=== PATIENT | male | born 1985 | race Asian ===

== ENCOUNTER 2017-12-04 16:19 | Emergency (ER) | payer MEDICAID ==
[~2017-12-04 16:19] MED LIST: ZOF4T PO
== END 2017-12-04 17:47 | disposition left against medical advice (07) ==
LOC: ER 16:19
DX: J00 Acute nasopharyngitis [common cold] (principal); Z53.21 Procedure and treatment not carried out due to patient leaving prior to being seen by health care provider

== ENCOUNTER 2021-09-24 13:24 | Inpatient (IN) | payer MEDICAID ==
[~2021-09-24] VITALS: Ht 162.6 cm; Wt 56.8 kg
[2021-09-24] MEDS ORDERED: normal saline 1000ML IV soln IVB ONE (13:40)
[2021-09-24 13:48] LABS: BASOPHILS % (AUTO) 0.1 % (0-1); EOSINOPHILS # (AUTO) 0.1 X10'3 (0-0.9); EOSINOPHILS % (AUTO) 1.4 % (0-6); HEMATOCRIT 28.6 % (42.0-52.0); HEMOGLOBIN 8.8 g/dl (14.0-17.9); LYMPHOCYTES % (AUTO) 9.2 % (21-51); MEAN CORPUSCULAR HEMOGLOBIN 22.5 PG (27.0-31.0); MEAN CORPUSCULAR HGB CONC 30.8 g/dL (33.0-36.5); MEAN PLATELET VOLUME 8.4 FL (7.4-10.4); MONOCYTES # (AUTO) 0.7 X10'3 (0-0.9); MONOCYTES % (AUTO) 6.5 % (2-12); NEUTROPHILS # (AUTO) 8.8 X10'3 (1.8-7.7); NEUTROPHILS % (AUTO) 82.8 % (42-75); PLATELET COUNT 80 X10'3 (140-440); RED BLOOD COUNT 3.92 X10'6 (4.70-6.10); WHITE BLOOD COUNT 10.6 X10'3 (4.5-11.0)
[2021-09-24] MEDS ORDERED: thiamine 100mg/ml 2ml inj. IV ONE (13:50)
[2021-09-24] MEDS ORDERED: folic acid 1mg/0.2ml inj IV ONE (13:50)
[2021-09-24] MEDS ORDERED: LORazepam 2 mg/ml vial IV ONE (13:50)
[2021-09-24] MEDS ORDERED: magnesium 2GM in 50ml NS 50 ML IV ONE (13:50)
[2021-09-24 13:59] LABS: ALANINE AMINOTRANSFERASE 34 U/L (12-78); ALBUMIN 2.8 G/DL (3.4-5.0); ALKALINE PHOSPHATASE 166 IU/L (46-116); ANION GAP 20 (8-16); ASPARTATE AMINO TRANSFERASE 115 U/L (10-37); BILIRUBIN,TOTAL 7.1 MG/DL (0.1-1.0); BLOOD UREA NITROGEN 6 MG/DL (7-18); BUN/CREATININE RATIO 5.6 (5.4-32.0); CALCIUM 7.8 MG/DL (8.5-10.1); CHLORIDE 89 MMOL/L (99-107); CREATININE 1.08 MG/DL (0.60-1.10); ETHANOL < 0.010 GM/DL (0.0-0.010); SODIUM 126 MMOL/L (135-145); TOTAL CARBON DIOXIDE 17.3 MMOL/L (24-32); eGFR 78 ML/MIN
[2021-09-24 14:00] LABS: ALBUMIN/GLOBULIN RATIO 0.4 (1.1-1.5); ANISOCYTOSIS 3+; GLUCOSE 137 MG/DL (70-104); LARGE PLATELETS FEW; MICROCYTOSIS 1+; PLATELET ESTIMATE DECREASED; POTASSIUM 3.5 MMOL/L (3.5-5.1); TOTAL PROTEIN 9.4 G/DL (6.4-8.2)
[2021-09-24] MEDS ORDERED: lactulose 20gm/30ml cup PO ONE (14:45)
[2021-09-24 14:51] LABS: URINE AMPHETAMINE SCREEN NEGATIVE (Neg); URINE BARBITUATE SCREEN NEGATIVE (Neg); URINE BENZODIAZEPINES SCREEN NEGATIVE (Neg); URINE CANNABINOID SCREEN POSITIVE (Neg); URINE COCAINE SCREEN NEGATIVE (Neg); URINE METHADONE SCREEN NEGATIVE (Neg); URINE OPIATE SCREEN NEGATIVE (Neg); URINE PHENCYCLIDINE SCREEN NEGATIVE (Neg)
[2021-09-24] MEDS ORDERED: NO HOME MEDS (15:12)
[2021-09-24] MEDS ORDERED: haloperidol lactate 5mg/ml inj IM PRN (16:15)
[2021-09-24] MEDS ORDERED: acetaminophen 325mg tablet PO PRN (16:15)
[2021-09-24] MEDS ORDERED: magnesium Cl slow-release 64mg tablet PO PRN (16:15)
[2021-09-24] MEDS ORDERED: LORazepam 2 mg/ml vial IV PRN (16:15)
[2021-09-24] MEDS ORDERED: ondansetron/PF 4mg/2ml inj IV PRN (16:15)
[2021-09-24] MEDS ORDERED: potassium CL 10mEq/100ml bag 100 ML IV PRN (16:15)
[2021-09-24] MEDS ORDERED: magnesium 4gm in 100ml NS 100 ML IV PRN (16:15)
[2021-09-24] MEDS ORDERED: mag hydrox/Alum hydrox/simeth 30ml oral suspension PO PRN (16:15)
[2021-09-24] MEDS ORDERED: magnesium 2GM in 50ml NS 50 ML IV PRN (16:15)
[2021-09-24] MEDS ORDERED: potassium Cl 20 mEq SR tablet PO PRN ×2 (16:15)
[2021-09-24] MEDS: normal saline 1000ml 1,000 ML IV SCH ×2 (16:29→23:00)
[2021-09-24] MEDS: lactulose 20gm/30ml cup PO SCH (19:53)
[2021-09-24] MEDS: K and/or MAG REPLACEMENT MC SCH (20:00)
[2021-09-24] MEDS: LORazepam 2 mg/ml vial IV PRN (20:57)
[2021-09-25 00:16] VITALS: BP 113/66
[2021-09-25] MEDS: lactulose 20gm/30ml cup PO SCH ×2 (01:50→07:35)
[2021-09-25] MEDS: normal saline 1000ml 1,000 ML IV SCH ×2 (05:36→22:15)
[2021-09-25 06:22] LABS: BASOPHILS % (AUTO) 0.3 % (0-1); EOSINOPHILS # (AUTO) 0.4 X10'3 (0-0.9); EOSINOPHILS % (AUTO) 5.1 % (0-6); HEMATOCRIT 23.9 % (42.0-52.0); HEMOGLOBIN 7.6 g/dl (14.0-17.9); LYMPHOCYTES # (AUTO) 0.8 X10'3 (1.1-4.8); LYMPHOCYTES % (AUTO) 9.7 % (21-51); MEAN CORPUSCULAR HEMOGLOBIN 23.1 PG (27.0-31.0); MEAN CORPUSCULAR HGB CONC 31.8 g/dL (33.0-36.5); MEAN CORPUSCULAR VOLUME 72.5 FL (78-98); MEAN PLATELET VOLUME 8.5 FL (7.4-10.4); MONOCYTES # (AUTO) 0.6 X10'3 (0-0.9); MONOCYTES % (AUTO) 7.1 % (2-12); NEUTROPHILS # (AUTO) 6.6 X10'3 (1.8-7.7); NEUTROPHILS % (AUTO) 77.8 % (42-75); PLATELET COUNT 72 X10'3 (140-440); WHITE BLOOD COUNT 8.5 X10'3 (4.5-11.0)
--- NOTE | 2021-09-25 06:46 | NUR ---
Patient admitted from ER around 2300 on 09/24/2021. Patient report given, questions answered & plan of care reviewed with SAMANTHA Uriarte.
[2021-09-25 06:56] LABS: ALANINE AMINOTRANSFERASE 30 U/L (12-78); ALBUMIN 2.3 G/DL (3.4-5.0); ALKALINE PHOSPHATASE 135 IU/L (46-116); ANION GAP 10 (8-16); ASPARTATE AMINO TRANSFERASE 100 U/L (10-37); BILIRUBIN,TOTAL 5.2 MG/DL (0.1-1.0); BLOOD UREA NITROGEN 4 MG/DL (7-18); CALCIUM 7.4 MG/DL (8.5-10.1); CHLORIDE 102 MMOL/L (99-107); CREATININE 0.67 MG/DL (0.60-1.10); GLUCOSE 89 MG/DL (70-104); LIPASE 152 U/L (73-393); POTASSIUM 3.5 MMOL/L (3.5-5.1); SODIUM 135 MMOL/L (135-145); TOTAL CARBON DIOXIDE 22.7 MMOL/L (24-32); eGFR > 90 ML/MIN
[2021-09-25 07:00] VITALS: BP 108/59
[2021-09-25 07:00] LABS: ALBUMIN/GLOBULIN RATIO 0.4 (1.1-1.5); PHOSPHORUS 2.8 MG/DL (2.3-4.5)
[2021-09-25 07:16] LABS: ANISOCYTOSIS 3+; MICROCYTOSIS 1+; PLATELET ESTIMATE DECREASED; POIKILOCYTOSIS FEW; POLYCHROMASIA FEW
[2021-09-25] MEDS: LORazepam 2 mg/ml vial IV PRN (07:37)
[2021-09-25] MEDS ORDERED: nicotine 14mg patch - 24hr TD SCH (08:00)
[2021-09-25] MEDS: K and/or MAG REPLACEMENT MC SCH ×2 (08:00→20:00)
[2021-09-25] MEDS ORDERED: multivitamins, therapeutics tablet PO SCH (08:00)
[2021-09-25] MEDS ORDERED: lactulose 20gm/30ml cup PO SCH (20:00)
[2021-09-26] VITALS: BP 139/87
[2021-09-26] MEDS: LORazepam 2 mg/ml vial IV PRN (00:46)
[2021-09-26 06:09] LABS: BASOPHILS # (AUTO) 0.1 X10'3 (0-0.2); BASOPHILS % (AUTO) 0.8 % (0-1); EOSINOPHILS # (AUTO) 0.4 X10'3 (0-0.9); EOSINOPHILS % (AUTO) 5.3 % (0-6); HEMATOCRIT 25.7 % (42.0-52.0); LYMPHOCYTES # (AUTO) 1.2 X10'3 (1.1-4.8); LYMPHOCYTES % (AUTO) 14.5 % (21-51); MEAN CORPUSCULAR HEMOGLOBIN 23.2 PG (27.0-31.0); MEAN CORPUSCULAR HGB CONC 31.3 g/dL (33.0-36.5); MEAN PLATELET VOLUME 8.4 FL (7.4-10.4); MONOCYTES # (AUTO) 0.4 X10'3 (0-0.9); MONOCYTES % (AUTO) 5.1 % (2-12); NEUTROPHILS # (AUTO) 6.3 X10'3 (1.8-7.7); NEUTROPHILS % (AUTO) 74.3 % (42-75); PLATELET COUNT 90 X10'3 (140-440); RED BLOOD COUNT 3.47 X10'6 (4.70-6.10); RED CELL DISTRIBUTION WIDTH 24.7 % (11.5-14.5); WHITE BLOOD COUNT 8.4 X10'3 (4.5-11.0)
--- NOTE | 2021-09-26 06:20 | NUR ---
Problems reprioritized. Patient report given, questions answered & plan of care reviewed with JOVANNA SINGH.
[2021-09-26 06:41] LABS: ALANINE AMINOTRANSFERASE 29 U/L (12-78); ALBUMIN 2.4 G/DL (3.4-5.0); ALKALINE PHOSPHATASE 133 IU/L (46-116); ANION GAP 10 (8-16); ASPARTATE AMINO TRANSFERASE 85 U/L (10-37); BILIRUBIN,TOTAL 4.3 MG/DL (0.1-1.0); BLOOD UREA NITROGEN 2 MG/DL (7-18); CALCIUM 7.9 MG/DL (8.5-10.1); CHLORIDE 104 MMOL/L (99-107); CREATININE 0.67 MG/DL (0.60-1.10); GLUCOSE 98 MG/DL (70-104); LIPASE 166 U/L (73-393); POTASSIUM 3.5 MMOL/L (3.5-5.1); SODIUM 136 MMOL/L (135-145); TOTAL CARBON DIOXIDE 21.7 MMOL/L (24-32); eGFR > 90 ML/MIN
--- NOTE | 2021-09-26 06:44 | NUR ---
Problems reprioritized. Patient report given, questions answered & plan of care reviewed with SAMANTHA Doshi, for continuation of care. Patient emphasizing that he want to go home.
[2021-09-26 06:47] LABS: ALBUMIN/GLOBULIN RATIO 0.4 (1.1-1.5); PHOSPHORUS 2.5 MG/DL (2.3-4.5); TOTAL PROTEIN 8.2 G/DL (6.4-8.2)
[2021-09-29] MEDS ORDERED: thiamine 100mg tablet PO SCH (08:00)
[2021-09-29] MEDS ORDERED: folic acid 1mg tablet PO SCH (08:00)
== END 2021-09-26 06:35 | disposition left against medical advice (07) | DRG 279 ==
LOC: ER 13:25 → ED HOLD 16:20 → SUR 3N 22:32
PROVIDERS: ADMIT Family Medicine; ATTEND Family Medicine
DX: K72.90 Hepatic failure, unspecified without coma (principal); F10.231 Alcohol dependence with withdrawal delirium; D68.9 Coagulation defect, unspecified; E72.20 Disorder of urea cycle metabolism, unspecified; D69.6 Thrombocytopenia, unspecified; E87.1 Hypo-osmolality and hyponatremia; K70.10 Alcoholic hepatitis without ascites; R16.1 Splenomegaly, not elsewhere classified; F10.239 Alcohol dependence with withdrawal, unspecified; F12.90 Cannabis use, unspecified, uncomplicated; F17.210 Nicotine dependence, cigarettes, uncomplicated; K29.20 Alcoholic gastritis without bleeding; Z53.29 Procedure and treatment not carried out because of patient's decision for other reasons
CPT/HCPCS: 36415; 70450; 71045; 74176; 80053; 80305; 80320; 82140; 82948; 83690; 83735; 84100; 85008; 85025; 85610; 87081; 93005; 97116; 97161; 97530; 99285; G0378; J2060; J3411; J3475; J3490; J7030

== ENCOUNTER 2024-11-22 13:19 | Emergency (ER) | payer MEDICAID ==
[~2024-11-22] VITALS: Ht 162.6 cm; Wt 62.8 kg
[~2024-11-22 13:19] MED LIST changes: +NO HOME MEDS; -ZOF4T PO
[2024-11-22 13:21] VITALS: TEMP 99.3
--- NOTE | 2024-11-22 14:50 | Physician Documentation ---
History of Present Illness ~ Chief Complaint: Mental Health Eval Stated Complaint: EVAL Time Seen by MD: 14:48 Primary Medical Doctor: none HPI This is a 39-year-old male brought into the emergency department by his family due to concerns for onset of hallucinations. He is also noted to be tremulous. He reports that he has used what he thought was cocaine over the last couple of days, but admits that it is from a friend who was not entirely sure what it was. He also admits to typically drinking two 24 oz bottles of hard alcohol per day, but has obstained over the last few days. Medication Reconciliation Allergies: Coded Allergies: No Known Allergies (Unverified , 05/04/13) Scheduled Folic Acid* (Folic Acid*), 1 TAB PO DAILY Mecobalamin (B12 Active), 1 TAB PO DAILY Thiamine HCl (Vitamin B-1), 2 TAB PO DAILY Scheduled PRN Chlordiazepoxide Hcl (Librium), 2 CAP PO Q8H PRN for alcohol w/d symptoms Miscellaneous Medications Home Med List (No Home Medications), (Reported) Past Medical History Past Medical History: No Pertinent History Past Surgical History: noncontributory Patient History: Patient reports no known family medical history. Alcohol Use: Occasionally Drug Use: marijuana Lives with: Family Lives In: Home Review of Systems ROS As stated above in the HPI, otherwise all systems are reviewed and negative. Physical Exam Vital Signs: Temperature: 99.3, Source: Oral, Heart Rate: 87, Respiratory Rate: 16, BP: 132/90, Pulse Oximetry: 95, Weight: 62.800 Oxygen Flow Rate: 0 Physical Exam General: Alert, no apparent distress. Neck: Full range of motion. Respiratory: Lungs clear, no respiratory distress. Chest: No accessory muscle use. Cardiovascular: Regular rate and rhythm, no murmurs. Gastrointestinal: Soft, nontender, nondistended. Bowels sounds present. Extremities: Normal range of motion, no deformity. Neurologic: Oriented x4. Tremulous. Psychiatric: Normal mood and affect. Skin: Normal color, warm and dry. No edema, no ecchymosis. Progress Progress Note 1620: On reevaluation after lorazepam 1 mg po, patient reported feeling much improved. He was less tremulous on exam and he was reporting still seeing a few bugs on the floor, but less hallucinations otherwise being present. He and his family at bedside feel comfortable discharging home with PCP f/u within a week and librium/ondansetron. Results/Orders Results/Orders Orders - COURTNEY PICKENS NP Med Rec (11/22/24 14:50) 1799.11 (11/22/24 14:50) Regular Diet (11/22/24 Dinner) Close Observation Level (11/22/24 14:50) Covid19 Binax Poc Result Entry (11/22/24 14:50) General Nursing Order (11/22/24 14:53) Completed Orders - COURTNEY PICKENS NP Cbc/Diff (11/22/24 14:50) Urinalysis (11/22/24 14:50) Drug Screen, Urine (11/22/24 14:50) Ethanol (11/22/24 14:50) TSH (11/22/24 14:50) BMP (11/22/24 14:50) Lorazepam Tablet (Ativan Tablet) (11/22/24 15:25) Lorazepam Tablet (Ativan Tablet) (11/22/24 15:55) Lorazepam Tablet (Ativan Tablet) (11/22/24 16:25) Medications Received in ER Medications (Trade) Dose Ordered Sig/Emili Route PRN Reason Start Time Stop Time Status Last Admin Dose Admin (Ativan tablet) 1 mg ONCE ONCE PO 11/22/24 15:25 11/22/24 15:26 DC 11/22/24 15:35 1 MG Vital Signs 11/22/24 11/22/24 13:21 14:45 Temp 99.3 Pulse 87 Resp 16 B/P (MAP) 132/90 Pulse Ox 95 O2 Flow Rate 0 Laboratory Tests Test 11/22/24 15:15 11/22/24 15:30 White Blood Count 8.4 Red Blood Count 4.65 L Hemoglobin 13.2 L Hematocrit 39.2 L Mean Corpuscular Volume 84.3 Mean Corpuscular Hemoglobin 28.5 Mean Corpuscular Hemoglobin Concent 33.7 Red Cell Distribution Width 24.7 H Platelet Count 89 L Mean Platelet Volume 8.9 Neutrophils (%) (Auto) 85.8 H Lymphocytes (%) (Auto) 9.2 L Monocytes (%) (Auto) 4.4 Eosinophils (%) (Auto) 0.4 Basophils (%) (Auto) 0.2 Neutrophils # (Auto) 7.2 Lymphocytes # (Auto) 0.8 L Monocytes # (Auto) 0.4 Eosinophils # (Auto) 0.0 Basophils # (Auto) 0.0 CBC Comment Sodium Level 141 Potassium Level 4.1 Chloride Level 106 Carbon Dioxide Level 26.2 Anion Gap 9 Blood Urea Nitrogen 7 Creatinine 0.90 Estimated GFR/1.73 m2 > 90 BUN/Creatinine Ratio 7.8 L Glucose Level 81 Calcium Level 8.7 Albumin 3.4 Thyroid Stimulating Hormone (TSH) 1.82 Chemistry Comments Ethyl Alcohol Level < 10 Urine Specimen Description Cln catch midstream Urine Color Yellow Urine Clarity Clear Urine pH 7.5 Urine Specific Martha 1.020 Urine Protein Negative Urine Glucose (UA) Negative Urine Ketones Negative Urine Occult Blood Negative Urine Nitrite Negative Urine Bilirubin Negative Urine Urobilinogen 0.2 Urine Leukocyte Esterase Negative Volume Urine Centrifuged 10 ml Urine Comment Urine Opiates Screen Negative Urine Methadone Screen Negative Urine Fentanyl Screen Negative Urine Barbiturates Screen Negative Urine Phencyclidine Screen Negative Urine Amphetamines Screen Negative Urine Benzodiazepines Screen Negative Urine Cocaine Screen Positive Urine Cannabinoids Screen Positive Drug Screen Comment Medical Decision Making Differential Diagnosis This patient was evaluated for hallucinations. On careful questioning, it was found that he had recently been using cocaine and has been abstaining from alcohol. He admitted to regular heavy use of alcohol, but had not had any alcohol for the last couple of days. He was given lorazepam 1 mg p.o.. He was found to be improved after this, was still noting some bugs crawling on the floor that others did not see, but was able to make good eye contact, was alert, less tremulous, and felt motivated to go home. He has family with him who affirmed that they will be able to watch him closely over the next few days and get him a primary care appointment within the next week. Long discussion about the need to return at any time if worse. Departure Time of Disposition: 16:26 Disposition: 01 HOME / SELF CARE / HOMELESS Impression: Primary Impression: Alcohol withdrawal Condition: Stable Discharge Instructions: Alcohol Abuse and Nutrition, Alcohol Use Disorder Additional Instructions: Your symptoms improved after the administration of lorazepam. You will be sent home with a similar medication called Librium for alcohol withdrawal. Please also take [id number] thiamine, B12, and folic acid. Use ondansetron for nausea. Please return for worsening symptoms at any time. Referrals: NO PRIMARY CARE PROVIDER (PCP) Prescriptions Chlordiazepoxide Hcl (Librium) 25 Mg Capsule 2 CAP PO Q8H PRN for alcohol w/d symptoms for 3 Days, #12 CAP 0 Refills Prov: COURTNEY PICKENS NP 11/22/24 Folic Acid* (Folic Acid*) 0.4 Mg Tablet 1 TAB PO DAILY for 30 Days, #30 TAB Prov: COURTNEY PICKENS NP 11/22/24 Mecobalamin (B12 Active) 1,000 Mcg Tab.chew 1 TAB PO DAILY for 30 Days, #30 TAB 0 Refills Prov: COURTNEY PICKENS NP 11/22/24 Thiamine HCl (Vitamin B-1) 50 Mg Tablet 2 TAB PO DAILY for 30 Days, #60 TAB 0 Refills Prov: COURTNEY PICKENS NP 11/22/24 Education Educated: Patient, Family Educated regarding: diagnosis, treatment, prognosis, need for follow up Signature Scribe Signature: no scribe Attestation: The note accurately reflects work and decisions made by me.Courtney Judd NP 11/22/24 15:55 COURTNEY PICKENS NP November 22, 2024 14:50
[2024-11-22] MEDS: LORazepam 1 MG tablet PO ONE ×2 (15:35→16:42)
[2024-11-22 15:40] LABS: BASOPHILS % (AUTO) 0.2 % (0-1); EOSINOPHILS % (AUTO) 0.4 % (0-6); HEMATOCRIT 39.2 % (42.0-52.0); HEMOGLOBIN 13.2 g/dl (14.0-17.9); LYMPHOCYTES # (AUTO) 0.8 X10'3 (1.1-4.8); LYMPHOCYTES % (AUTO) 9.2 % (21-51); MEAN CORPUSCULAR HEMOGLOBIN 28.5 PG (27.0-31.0); MEAN CORPUSCULAR HGB CONC 33.7 g/dL (33.0-36.5); MEAN CORPUSCULAR VOLUME 84.3 FL (78-98); MEAN PLATELET VOLUME 8.9 FL (7.4-10.4); MONOCYTES # (AUTO) 0.4 X10'3 (0-0.9); MONOCYTES % (AUTO) 4.4 % (2-12); NEUTROPHILS # (AUTO) 7.2 X10'3 (1.8-7.7); NEUTROPHILS % (AUTO) 85.8 % (42-75); PLATELET COUNT 89 X10'3 (140-440); RED BLOOD COUNT 4.65 X10'6 (4.70-6.10); RED CELL DISTRIBUTION WIDTH 24.7 % (11.5-14.5); WHITE BLOOD COUNT 8.4 X10'3 (4.5-11.0)
[2024-11-22] MEDS ORDERED: LORazepam 1 MG tablet PO ONE (15:55)
[2024-11-22 15:57] LABS: BILIRUBIN,URINE NEGATIVE (Neg); CLARITY,URINE CLEAR (Clear); COLOR,URINE YELLOW (Yellow); GLUCOSE, URINE NEGATIVE (Neg); KETONES,URINE NEGATIVE (Neg); LEUKOCYTE ESTERASE ,URINE NEGATIVE (Neg); NITRITES, URINE NEGATIVE (Neg); OCCULT BLOOD,URINE NEGATIVE (Neg); PH,URINE 7.5 (4.8-8.0); PROTEIN,URINE NEGATIVE (Neg); UROBILINOGEN,URINE 0.2 E.U/dL (0.2-1.0)
[2024-11-22 16:02] LABS: URINE AMPHETAMINE SCREEN NEGATIVE (Neg); URINE BARBITUATE SCREEN NEGATIVE (Neg); URINE BENZODIAZEPINES SCREEN NEGATIVE (Neg); URINE CANNABINOID SCREEN POSITIVE (Neg); URINE COCAINE SCREEN POSITIVE (Neg); URINE METHADONE SCREEN NEGATIVE (Neg); URINE OPIATE SCREEN NEGATIVE (Neg); URINE PHENCYCLIDINE SCREEN NEGATIVE (Neg)
[2024-11-22 16:03] LABS: UA COLLECTION TYPE CLN CATCH MIDSTREAM
[2024-11-22 16:14] LABS: ALBUMIN 3.4 G/DL (3.4-5.0); ANION GAP 9 (8-16); BLOOD UREA NITROGEN 7 MG/DL (7-18); BUN/CREATININE RATIO 7.8 (10.0-20.0); CALCIUM 8.7 MG/DL (8.5-10.1); CHLORIDE 106 MMOL/L (99-107); ETHANOL < 10 MG/DL (<10); GLUCOSE 81 MG/DL (70-104); POTASSIUM 4.1 MMOL/L (3.5-5.1); SODIUM 141 MMOL/L (135-145); THYROID STIMULATING HORMONE 1.82 ulU/ml (0.34-4.50); TOTAL CARBON DIOXIDE 26.2 MMOL/L (24-32); eCRCL 93 ML/MIN; eGFR > 90 ML/MIN
[2024-11-22] MEDS ORDERED: CHLO25CA10 PO (16:29)
[2024-11-22] MEDS ORDERED: THIA50TA10 PO (16:29)
[2024-11-22] MEDS ORDERED: FOLI0.4T6 PO (16:29)
[2024-11-22] MEDS ORDERED: MECO10005 PO (16:29)
[2024-11-22 16:45] VITALS: BP 122/89; PULSE 81; RESP 16; O2SAT 99
[2024-11-22 16:50] LABS: PLATELET ESTIMATE DECREASED
[2024-11-22 16:51] LABS: ANISOCYTOSIS 3+
[2024-11-22 16:52] LABS: POLYCHROMASIA FEW
[2024-11-23] MEDS ORDERED: THIA50TA10 PO (13:58)
[2024-11-23] MEDS ORDERED: MECO10005 PO (13:59)
[2024-11-23] MEDS ORDERED: CHLO25CA10 PO (13:59)
[2024-11-23] MEDS ORDERED: FOLI0.4T6 PO (13:59)
== END 2024-11-22 16:47 | disposition home or self-care (01) ==
LOC: ER 13:20
DX: F10.939 Alcohol use, unspecified with withdrawal, unspecified (principal); F12.90 Cannabis use, unspecified, uncomplicated; Z72.89 Other problems related to lifestyle; Y90.9 Presence of alcohol in blood, level not specified; Z79.899 Other long term (current) drug therapy; Z20.822 Contact with and (suspected) exposure to COVID-19
CPT/HCPCS: 36415; 80048; 80305; 80320; 81003; 84443; 85008; 85025; 99283; 99284